=== PATIENT | female | born 1970 | race Caucasian/White ===

== ENCOUNTER 2021-10-16 16:25 | Emergency (ER) | payer MEDICARE ==
[~2021-10-16] VITALS: Ht 172.7 cm; Wt 79.5 kg
[2021-10-16 17:01] LABS: BASOPHILS % (AUTO) 0.2 % (0-1); EOSINOPHILS % (AUTO) 0.2 % (0-6); HEMATOCRIT 40.6 % (35.0-45.0); HEMOGLOBIN 13.8 g/dl (12.0-16.0); LYMPHOCYTES % (AUTO) 8.8 % (21-51); MEAN CORPUSCULAR HEMOGLOBIN 31.1 PG (27.0-31.0); MEAN CORPUSCULAR HGB CONC 33.9 g/dL (33.0-36.5); MEAN CORPUSCULAR VOLUME 91.8 FL (78-98); MEAN PLATELET VOLUME 7.1 FL (7.4-10.4); MONOCYTES # (AUTO) 0.4 X10'3 (0-0.9); MONOCYTES % (AUTO) 3.4 % (2-12); NEUTROPHILS # (AUTO) 9.9 X10'3 (1.8-7.7); NEUTROPHILS % (AUTO) 87.4 % (42-75); PLATELET COUNT 279 X10'3 (140-440); RED BLOOD COUNT 4.42 X10'6 (4.20-5.60); RED CELL DISTRIBUTION WIDTH 14.4 % (11.5-14.5); WHITE BLOOD COUNT 11.3 X10'3 (4.5-11.0)
[2021-10-16 17:13] LABS: ALANINE AMINOTRANSFERASE 52 U/L (12-78); ALBUMIN 4.6 G/DL (3.4-5.0); ALBUMIN/GLOBULIN RATIO 1.4 (1.1-1.5); ALKALINE PHOSPHATASE 74 IU/L (46-116); ANION GAP 13 (8-16); ASPARTATE AMINO TRANSFERASE 40 U/L (10-37); BILIRUBIN,TOTAL 0.5 MG/DL (0.1-1.0); BLOOD UREA NITROGEN 13 MG/DL (7-18); BUN/CREATININE RATIO 15.9 (6.6-38.0); CALCIUM 9.3 MG/DL (8.5-10.1); CHLORIDE 100 MMOL/L (99-107); CREATININE 0.82 MG/DL (0.40-0.90); GLUCOSE 106 MG/DL (70-104); POTASSIUM 3.6 MMOL/L (3.5-5.1); SODIUM 138 MMOL/L (135-145); TOTAL CARBON DIOXIDE 24.7 MMOL/L (24-32); TOTAL PROTEIN 7.9 G/DL (6.4-8.2); eGFR 74 ML/MIN
[2021-10-16 20:43] VITALS: BP_DIAS 137
[2021-10-16] MEDS ORDERED: hydrALAZINE 20mg/ml inj. IV ONE (20:55)
[2021-10-16] MEDS ORDERED: LISI10TA27 PO (21:54)
[2021-10-16] MEDS ORDERED: lisinopril 10 MG tablet PO ONE (21:55)
[2021-10-16] MEDS ORDERED: lisinopril 5mg tablet PO ONE (22:10)
[2021-10-16 22:35] VITALS: BP_SYST 176
[2021-10-16] MEDS ORDERED: LORazepam 2 mg/ml vial IV ONE (22:35)
== END 2021-10-16 23:42 | disposition home or self-care (01) ==
LOC: ER 16:25
DX: I16.0 Hypertensive urgency (principal); R42 Dizziness and giddiness; R06.02 Shortness of breath; I10 Essential (primary) hypertension; Z79.899 Other long term (current) drug therapy
CPT/HCPCS: 36415; 71045; 80053; 83880; 84484; 85025; 93005; 96374; 96375; 99285; J0360; J2060

== ENCOUNTER 2022-03-26 18:10 | Emergency (ER) | payer MEDICARE ==
[~2022-03-26] VITALS: Ht 152.4 cm; Wt 70.5 kg
[~2022-03-26 18:10] MED LIST: LISI10TA27 PO
[2022-03-26 18:17] VITALS: BP 135/97
[2022-03-26] MEDS ORDERED: oxyCODONE/APAP 5-325mg tablet PO ONE (20:15)
[2022-03-26] MEDS ORDERED: PER5325T PO (21:19)
== END 2022-03-26 21:39 | disposition home or self-care (01) ==
LOC: ER 18:12
DX: S62.616A Displaced fracture of proximal phalanx of right little finger, initial encounter for closed fracture (principal); S80.212A Abrasion, left knee, initial encounter; S80.211A Abrasion, right knee, initial encounter; F10.129 Alcohol abuse with intoxication, unspecified; I10 Essential (primary) hypertension; W18.39XA Other fall on same level, initial encounter; Y93.89 Activity, other specified; Y92.89 Other specified places as the place of occurrence of the external cause; Y99.8 Other external cause status
CPT/HCPCS: 29130; 73130; 99284

== ENCOUNTER 2022-08-11 14:37 | Emergency (ER) | payer MEDICARE, MEDICAID ==
[~2022-08-11] VITALS: Ht 172.7 cm; Wt 75.0 kg
[2022-08-11 14:38] VITALS: BP 158/108
[2022-08-11] MEDS ORDERED: NIRM1TAB PO ×3 (16:16→17:14)
== END 2022-08-11 17:18 | disposition home or self-care (01) ==
LOC: ER 14:37
DX: U07.1 COVID-19 (principal); I10 Essential (primary) hypertension; Z79.899 Other long term (current) drug therapy
CPT/HCPCS: 99283

== ENCOUNTER 2023-04-17 16:55 | Emergency (ER) | payer MEDICARE, MEDICAID ==
[~2023-04-17] VITALS: Ht 172.7 cm; Wt 68.2 kg
[~2023-04-17 16:55] MED LIST changes: +NIRM1TAB PO
[2023-04-17 17:25] VITALS: BP 151/115
[2023-04-17] MEDS ORDERED: PRED10TA PO ×3 (18:33→18:49)
[2023-04-17 19:07] LABS: HIV ANTIBODY 1&2 RAPID NON-REACTIVE (Neg)
== END 2023-04-17 18:44 | disposition home or self-care (01) ==
LOC: ER 16:55
DX: R21 Rash and other nonspecific skin eruption (principal); I10 Essential (primary) hypertension
CPT/HCPCS: 36415; 86703; 99283